=== PATIENT | male | born 1955 | race Caucasian/White ===

== ENCOUNTER 2024-02-29 16:39 | Emergency (ER) | payer MEDICARE, BC ==
[~2024-02-29] VITALS: Ht 177.8 cm; Wt 80.3 kg
[2024-02-29] MEDS ORDERED: ROSUVASTATIN (16:54)
[2024-02-29 18:50] VITALS: BP 119/81; O2SAT 97
[2024-03-06] MEDS: IV NORMAL SALINE 500 ML BAG IV ONE (07:52)
== END 2024-02-29 18:51 | disposition home or self-care (01) ==
LOC: ER 16:42
DX: T67.5XXA Heat exhaustion, unspecified, initial encounter (principal); E78.5 Hyperlipidemia, unspecified; X58.XXXA Exposure to other specified factors, initial encounter; Y93.89 Activity, other specified; Y92.89 Other specified places as the place of occurrence of the external cause; Y99.8 Other external cause status
CPT/HCPCS: A4606; A4663; J7040